=== PATIENT | female | born 1955 | race Caucasian/White ===

== ENCOUNTER → 2019-12-22 18:26 | Outpatient (ROUT) | payer MEDICARE, OTHER, SELFPAY ==
[2019-12-22 18:42] LABS: BUN Creatinine Ratio 21.3 (6-22); Blood Urea Nitrogen 17 mg/dL (7-17); Calcium 10.3 mg/dL (8.4-10.2); Carbon Dioxide 29 mmol/L (22-32); Chloride 103 mmol/L (98-107); Estimated Glomerular Filt Rate > 60.0 mL/min (>60); Glucose 103 mg/dL (80-110); HEMOLYSIS < 15 (0-50); Potassium 4.4 mmol/L (3.4-5.1); Sodium 143 mmol/L (137-145)
== END ==
PROVIDERS: Visit Provider Internal Medicine
DX: M54.12 Radiculopathy, cervical region (principal)
CPT/HCPCS: 80048

== ENCOUNTER → 2020-01-03 12:19 | Outpatient (CLI) | payer MEDICARE, OTHER, SELFPAY ==
--- NOTE | 2020-01-03 | DI.MRI.S_ITS ---
PROCEDURE: MR CERVICAL SPINE WO/W CON INDICATIONS: Benign lipomatous neoplasm, unspecified TECHNIQUE: Noncontrast sagittal T1 spin echo and T2 fast spin echo, sagittal STIR, foraminal oblique sagittal T2 fast spin echo, axial gradient echo or T2 fast spin echo through the cervical spine. After the administration of contrast, axial and sagittal T1 spin echo with fat saturation through the cervical spine. COMPARISON: None. FINDINGS: Image quality: Excellent. Alignment and curvature: There is minimal retrolisthesis seen at the C4-C5 level and C5-C6 level. Marrow: Marrow is normal in overall signal, without suspicious enhancement. Spinal cord: Visualized spinal cord has normal size and signal. No cerebellar tonsillar herniation. No abnormal intramedullary enhancement. Paraspinous soft tissues: No paravertebral masses or suspicious enhancement. C2-3: No significant abnormality is seen. C3-4: The disc height is well-preserved. Loss of disc signal is seen at this level. A mild degree of generalized disc osteophyte complex is seen. There is a mild central disc protrusion seen. Mild to moderate facet hypertrophy is seen. There is mild right-sided and minimal left-sided neural foraminal narrowing seen. Mild central canal narrowing is seen. C4-5: Mild loss of disc height is seen. Loss of disc signal is seen. Moderate generalized disc osteophyte complex is seen. There is moderate right-sided and mild left-sided facet hypertrophy seen. There is moderate right-sided and minimal left-sided neural foraminal narrowing seen. Moderate central canal narrowing is seen, with associated minimal mass effect upon the ventral spinal cord. C5-6: Moderate loss of disc height is seen. Loss of disc signal is seen. Moderate disc osteophyte complex is seen, which is eccentric to the right side. There is at least moderate bilateral neural foraminal narrowing seen. Moderate central canal narrowing is seen, with associated minimal mass effect upon the ventral spinal cord. C6-7: Moderate loss of disc height is seen. Loss of disc signal is seen. Reactive marrow endplate changes are seen, which are hyperintense on T1-weighted and T2-weighted imaging and most consistent with fatty metaplasia (Modic type II changes). Moderate to prominent disc osteophyte complex is seen, which is eccentric to the right. There is a right lateral/right foraminal disc osteophyte protrusion seen. There is moderate to severe right-sided and at least moderate left-sided neural foraminal narrowing seen. At least moderate central canal narrowing is seen, with associated mass effect upon the ventral spinal cord. C7-T1: The disc height is well-preserved. Loss of disc signal is seen at this level. Mild to moderate disc osteophyte complex is seen. No significant neural foraminal or central canal narrowing can be seen. IMPRESSION: Multiple levels of cervical spine degenerative change are seen, which are overall most prominent at the C6-C7 level. To the limits of this study, no crystal lipoma is identified. Dictated by: Christopher Álvarez M.D. on 01/03/2020 at 16:39 Approved by: Christopher Álvarez M.D. on 01/03/2020 at 16:44
== END ==
PROVIDERS: PCP Internal Medicine; Referring Provider Internal Medicine; Visit Provider Internal Medicine
DX: M47.22 Other spondylosis with radiculopathy, cervical region (principal); D17.9 Benign lipomatous neoplasm, unspecified
CPT/HCPCS: 72156; A9579